=== PATIENT | female | born 2000 | race Caucasian/White ===

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

== ENCOUNTER 2024-12-25 12:04 | Emergency (ER) | payer BC ==
[2024-12-25] MEDS: Erythromycin Base 0.5% Ophth Oint 3.5 GM Tube EYERT ONE (13:22)
== END 2024-12-25 13:24 | disposition home or self-care (01) ==
LOC: DL.ED 12:04
DX: H10.31 Unspecified acute conjunctivitis, right eye (principal); Z86.16 Personal history of COVID-19; Z90.49 Acquired absence of other specified parts of digestive tract
CPT/HCPCS: 99283; A9270